=== PATIENT | female | born 2000 | race African-American/Black ===

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

== ENCOUNTER 2021-04-01 08:18 | Emergency (ER) | payer OTHER ==
[2021-04-01] MEDS ORDERED: cefTRIAXone\\ROCEPHIN 1 GM VIAL ONE (08:56)
[2021-04-01] MEDS ORDERED: Lidocaine 1% 20 ML MDV ONE (08:56)
== END 2021-04-01 09:15 | disposition home or self-care (01) ==
LOC: MADERS 08:18
DX: J02.0 Streptococcal pharyngitis (principal)
CPT/HCPCS: 96372; 99283; J0696

== ENCOUNTER 2023-03-30 12:54 | Emergency (ER) | payer OTHER ==
[2023-03-30] MEDS ORDERED: Ibuprofen 600 MG TAB ONE (13:28)
== END 2023-03-30 14:20 | disposition home or self-care (01) ==
LOC: MADERS 12:54
DX: S93.401A Sprain of unspecified ligament of right ankle, initial encounter (principal); X50.1XXA Overexertion from prolonged static or awkward postures, initial encounter; Y93.01 Activity, walking, marching and hiking; Y92.89 Other specified places as the place of occurrence of the external cause

== ENCOUNTER 2024-05-20 21:07 | Emergency (ER) | payer SELFPAY ==
[2024-05-20] MEDS ORDERED: Ibuprofen 600 MG TAB ONE (21:43)
== END 2024-05-20 21:53 | disposition home or self-care (01) ==
LOC: MADERS 21:07
DX: S06.0X0A Concussion without loss of consciousness, initial encounter (principal); R29.700 NIHSS score 0; F17.290 Nicotine dependence, other tobacco product, uncomplicated; V43.52XA Car driver injured in collision with other type car in traffic accident, initial encounter; Y93.89 Activity, other specified
CPT/HCPCS: 99283